=== PATIENT | male | born 1950 | race Caucasian/White ===

== ENCOUNTER 2017-05-21 00:45 | Emergency (ER) | payer MEDICARE, BC ==
[~2017-05-21] VITALS: Ht 167.6 cm; Wt 72.7 kg
[~2017-05-21 00:45] MED LIST: BENICAR40 MG PO; CARDURA4 MG PO; PRAVACHOL 40MG40 MG PO; PROTONIX 40MG T40 MG PO; RHINOCORT0.032 MG/1 NS; TRICOR145 MG PO; VICODIN 5/300
[2017-05-21 00:48] VITALS: BP 132/70; TEMP 98.3
[2017-05-21 02:53] VITALS: PULSE 18
== END 2017-05-21 02:50 | disposition home or self-care (01) ==
LOC: COL.ER 00:45
DX: T15.01XA Foreign body in cornea, right eye, initial encounter (principal); X58.XXXA Exposure to other specified factors, initial encounter
CPT/HCPCS: J7120

== ENCOUNTER 2022-12-09 07:20 | Day surgery (SDC) | payer MEDICARE, BC ==
[~2022-12-09] VITALS: Ht 167.6 cm; Wt 74.2 kg
[2022-12-09 08:04] VITALS: BP 143/63; PULSE 65; TEMP 97.9
[2022-12-09] MEDS ORDERED: LIPITOR20 MG PO (08:23)
[2022-12-09] MEDS ORDERED: PROAIR HFA0.09 MG/AC IH (08:24)
[2022-12-09] MEDS ORDERED: RHINOCORT0.032 MG/1 NS (08:24)
[2022-12-09] MEDS ORDERED: TYLENOL 500MG500 MG PO (08:25)
[2022-12-09] MEDS ORDERED: ICAPS AREDS2 S1 EACH PO (08:26)
[2022-12-09] MEDS ORDERED: PROBIOTIC DIGE1 EACH PO (08:26)
[2022-12-09] MEDS ORDERED: NORCO 325 MG-51 TAB PO (08:51)
[2022-12-09 10:35] VITALS: BP 125/62; PULSE 62; TEMP 97
[2022-12-09 10:45] VITALS: BP 118/57; PULSE 61
[2022-12-09 11:00] VITALS: BP 124/62; PULSE 56; TEMP 97
--- NOTE | 2022-12-09 11:47 | NUR ---
1025 RECEIVED POST OP REPORT FROM ZOILA COWAN, PACU. 1035 PT RETURNED TO BAY 6, ALERT AND ORIENTED, BREATHING EVEN AND UNLABORED. 1045 PT GIVEN JUICE AND TOAST FOR PO CHALLENGE. TOLERATED WELL 1116 PHYSICIANS DISCHARGE INSTRUCTIONS AND PT EDUCATIONAL MATERIALS REVIEWED W/ PT AND HIS . QUESTIONS INVITED AND ANSWERED. 1130 PT TO LOBBY VIA WHEEL CHAIR FOR RIDE HOME WITH IN POV.
== END 2022-12-09 11:30 | disposition home or self-care (01) ==
LOC: SDCO 07:20
DX: K40.90 Unilateral inguinal hernia, without obstruction or gangrene, not specified as recurrent (principal); I10 Essential (primary) hypertension; K21.9 Gastro-esophageal reflux disease without esophagitis
CPT/HCPCS: C1781; J0330; J0690; J1100; J1885; J2405; J2704; J3010; J7120